=== PATIENT | female | born 1995 | race Caucasian/White ===

== ENCOUNTER 2020-03-01 18:45 | Emergency (ER) | payer MEDICAID ==
[~2020-03-01] VITALS: Ht 152.4 cm; Wt 67.3 kg
[2020-03-01] MEDS ORDERED: LITH300C3 PO (22:16)
[2020-03-01] MEDS ORDERED: CLON.5 PO (22:16)
[2020-03-01] MEDS ORDERED: DEPOP150I IM (22:16)
[2020-03-01] MEDS ORDERED: RISP1TAB27 PO ×2 (22:16)
[2020-03-01] MEDS ORDERED: CITA10TA99 PO (22:16)
[2020-03-01] MEDS ORDERED: LEVE500L PO (22:16)
[2020-03-01] MEDS ORDERED: DIPH50 PO (22:16)
[2020-03-01] MEDS ORDERED: LAMO100 PO ×2 (22:16)
[2020-03-01] MEDS ORDERED: MIRT-89 PO (22:16)
[2020-03-01] MEDS ORDERED: BENZ1TAB10 PO (22:16)
[2020-03-01] MEDS ORDERED: ASEN10TA8 SL (22:16)
[2020-03-01 23:19] LABS: BASOPHILS % (AUTO) 0.7 % (0.0-2.0); EOSINOPHILS % (AUTO) 2.9 % (1.0-6.0); HEMATOCRIT 32.7 % (36-46); HEMOGLOBIN 10.8 g/dL (12.0-16.0); MEAN CORPUSCULAR HEMOGLOBIN 29.4 pg (26.0-34.0); MEAN CORPUSCULAR VOLUME 89 fL (80-100); MONOCYTES # (AUTO) 0.7 K/uL (0.1-1.0); MONOCYTES % (AUTO) 7.9 % (2.0-9.0); NEUTROPHILS # (AUTO) 3.4 K/uL (1.8-7.7); NEUTROPHILS % (AUTO) 35.5 % (40.0-70.0); PLATELET COUNT (AUTO) 246 K/uL (150-450); RED BLOOD CELL COUNT(AUTO) 3.68 MIL/uL (4.00-5.20); RED CELL DISTRIBUTION WIDTH 12.4 % (11.5-14.5)
[2020-03-01 23:30] LABS: ANION GAP 7 mmol/L (8-16); CALCIUM, TOTAL 8.8 mg/dL (8.8-10.5); CARBON DIOXIDE 23 mmol/L (22-29); CHLORIDE 110 mmol/L (98-107); CREATININE 0.73 mg/dL (0.60-1.30); GLOMERULAR FILTR. RATE CALC > 60 mL/min (>60); GLUCOSE,RANDOM 103 mg/dL (70-110); POTASSIUM 4.1 mmol/L (3.5-5.1); SODIUM SERUM 140 mmol/L (136-145); UREA NITROGEN, BLOOD 16 mg/dL (7-18)
[2020-03-01 23:36] LABS: ALANINE AMINOTRANSFERASE 25 U/L (12-78); ALBUMIN 3.5 g/dL (3.4-5.0); ALKALINE PHOSPHATASE 85 U/L (46-116); ASPARTATE AMINOTRANSFERASE 15 U/L (15-37); TOTAL PROTEIN, SERUM 6.9 g/dL (6.4-8.2)
[2020-03-01 23:42] LABS: AMPHET/METH SCREEN,URINE NEGATIVE (NEGATIVE); BARBITURATE SCREEN, URINE NEGATIVE (NEGATIVE); BENZODIAZEPINES SCREEN,URINE NEGATIVE (NEGATIVE); CANNABINOID SCREEN,URINE NEGATIVE (NEGATIVE); COCAINE SCREEN,URINE NEGATIVE (NEGATIVE); METHADONE SCREEN, URINE NEGATIVE (NEGATIVE); OPIATE SCREEN,URINE NEGATIVE (NEGATIVE)
[2020-03-01 23:46] LABS: PHENCYCLIDINE SCREEN,URINE NEGATIVE (NEGATIVE)
[2020-03-02 00:11] LABS: BILIRUBIN,TOTAL 0.1 mg/dL (0.1-1.0)
[2020-03-02 07:26] VITALS: BP 99/58
== END 2020-03-02 07:51 | disposition home or self-care (01) ==
LOC: EMS 18:47
DX: R45.6 Violent behavior (principal); F32.9 Major depressive disorder, single episode, unspecified; J45.909 Unspecified asthma, uncomplicated; D64.9 Anemia, unspecified; Z88.8 Allergy status to other drugs, medicaments and biological substances; Z79.899 Other long term (current) drug therapy
CPT/HCPCS: 36415; 80053; 80307; 85025; 99285; G0480

== ENCOUNTER 2020-03-10 21:34 | Inpatient (IN) | payer MEDICAID ==
[~2020-03-10] VITALS: Ht 152.4 cm; Wt 69.9 kg
[~2020-03-10 21:34] MED LIST: ASEN10TA8 SL; BENZ1TAB10 PO; CITA10TA99 PO; CLON.5 PO; DEPOP150I IM; DIPH50 PO; LAMO100 PO; LEVE500L PO; LITH300C3 PO; MIRT-89 PO; RISP1TAB27 PO
[2020-03-10 23:00] LABS: BASOPHILS % (AUTO) 0.6 % (0.0-2.0); EOSINOPHILS % (AUTO) 2.5 % (1.0-6.0); HEMATOCRIT 36.2 % (36-46); HEMOGLOBIN 11.8 g/dL (12.0-16.0); LYMPHOCYTES # (AUTO) 4.6 K/uL (1.0-4.8); LYMPHOCYTES % (AUTO) 48.6 % (22.0-44.0); MEAN CORPUSCULAR HEMOGLOBIN 28.9 pg (26.0-34.0); MEAN CORPUSCULAR HGB CONC 32.8 G/dL (31.0-37.0); MEAN CORPUSCULAR VOLUME 88 fL (80-100); MONOCYTES # (AUTO) 0.8 K/uL (0.1-1.0); MONOCYTES % (AUTO) 8.9 % (2.0-9.0); NEUTROPHILS # (AUTO) 3.8 K/uL (1.8-7.7); NEUTROPHILS % (AUTO) 39.4 % (40.0-70.0); PLATELET COUNT (AUTO) 251 K/uL (150-450); RED CELL DISTRIBUTION WIDTH 12.9 % (11.5-14.5)
[2020-03-10 23:08] LABS: AMPHET/METH SCREEN,URINE NEGATIVE (NEGATIVE); BARBITURATE SCREEN, URINE NEGATIVE (NEGATIVE); BENZODIAZEPINES SCREEN,URINE NEGATIVE (NEGATIVE); CANNABINOID SCREEN,URINE NEGATIVE (NEGATIVE); COCAINE SCREEN,URINE NEGATIVE (NEGATIVE); METHADONE SCREEN, URINE NEGATIVE (NEGATIVE); OPIATE SCREEN,URINE NEGATIVE (NEGATIVE)
[2020-03-10 23:11] LABS: PHENCYCLIDINE SCREEN,URINE NEGATIVE (NEGATIVE)
[2020-03-10 23:30] LABS: ANION GAP 9 mmol/L (8-16); CARBON DIOXIDE 23 mmol/L (22-29); CHLORIDE 108 mmol/L (98-107); CREATININE 0.95 mg/dL (0.60-1.30); GLOMERULAR FILTR. RATE CALC > 60 mL/min (>60); GLUCOSE,RANDOM 90 mg/dL (70-110); SODIUM SERUM 140 mmol/L (136-145); UREA NITROGEN, BLOOD 12 mg/dL (7-18)
[2020-03-10 23:42] LABS: ALANINE AMINOTRANSFERASE 30 U/L (12-78); ALBUMIN 3.6 g/dL (3.4-5.0); ALKALINE PHOSPHATASE 93 U/L (46-116); ASPARTATE AMINOTRANSFERASE 23 U/L (15-37); BILIRUBIN,TOTAL 0.2 mg/dL (0.1-1.0); HCG,QUANTITATIVE < 1 mIU/mL (0-6); TOTAL PROTEIN, SERUM 7.4 g/dL (6.4-8.2)
[2020-03-10 23:55] LABS: LITHIUM 0.76 mmol/L (0.60-1.20)
[2020-03-11] MEDS ORDERED: LORazepam 2 MG TABLET PO PRN (01:45)
[2020-03-11] MEDS ORDERED: ZOLPIDEM TARTRATE 10 MG TABLET PO PRN (01:45)
[2020-03-11] MEDS ORDERED: QUEtiapine FUMARATE 100 MG TABLET PO PRN (01:45)
[2020-03-11 03:37] LABS: APPEARANCE,URINE CLEAR (CLEAR); BILIRUBIN,URINE NEGATIVE (NEGATIVE); GLUCOSE, URINE (UA) NEGATIVE (NEGATIVE); KETONES,URINE NEGATIVE (NEGATIVE); LEUKOCYTE ESTERASE ,URINE NEGATIVE (NEGATIVE); NITRATE,URINE NEGATIVE (NEGATIVE); OCCULT BLOOD,URINE NEGATIVE (NEGATIVE); PH,URINE 7.5 (5.0-8.0); PROTEIN,URINE NEGATIVE (NEGATIVE); UROBILINOGEN,URINE 0.2 mg/dL (<=1.0)
[2020-03-11 05:16] VITALS: BP 110/72
[2020-03-11 08:07] VITALS: BP 101/68
[2020-03-11] MEDS ORDERED: LevETIRAcetam 500 MG TABLET PO SCH (10:15)
[2020-03-11] MEDS ORDERED: ACETAMINOPHEN 325 MG TABLET PO PRN (11:00)
[2020-03-11] MEDS ORDERED: MAG HYDROX/AL HYDROX/SIMETH ES 30 ML SUSPENSION UDCUP PO PRN (11:00)
[2020-03-11] MEDS ORDERED: MAGNESIUM HYDROXIDE SUSPENSION 30 ML UDCUP PO PRN (11:00)
[2020-03-11] MEDS ORDERED: GuaiFENesin/D-METHORPHAN [SUGAR-FREE] 200-20MG/10 ML SYRUP UDCUP PO PRN (11:00)
[2020-03-11] MEDS ORDERED: LOPERAMIDE HCL 2 MG CAPSULE PO PRN (11:00)
[2020-03-11] MEDS ORDERED: PROMETHAZINE HCL 25 MG TABLET PO PRN (11:00)
[2020-03-11] MEDS ORDERED: TUBERCULIN, PURIFIED PROTEIN DERIVATIVE 5 TU/0.1 ML SYRINGE ID ONE (11:00)
[2020-03-11] MEDS ORDERED: ZIPRASIDONE MESYLATE 20 MG/VIAL IM ONE (15:15)
[2020-03-11] MEDS ORDERED: ZIPRASIDONE MESYLATE 20 MG/VIAL IM PRN (16:30)
[2020-03-11] MEDS ORDERED: GABAPENTIN 400 MG CAPSULE PO PRN (16:30)
[2020-03-11] MEDS ORDERED: OLANZapine 5 MG RAPDIS TABLET PO PRN (16:30)
[2020-03-11] MEDS: LevETIRAcetam 500 MG TABLET PO SCH (17:42)
[2020-03-11] MEDS: THIAMINE 100 MG TABLET PO SCH (17:42)
[2020-03-11 17:46] VITALS: BP 110/77
[2020-03-11] MEDS: DIVALPROEX SODIUM 500 MG ER TABLET PO SCH (20:26)
[2020-03-11] MEDS: PRAZOSIN HCL 1 MG CAPSULE PO SCH (20:26)
[2020-03-11] MEDS ORDERED: ASENAPINE 10 MG SUBLINGUAL TABLET SL SCH (21:00)
[2020-03-12 01:37] VITALS: BP 103/72
[2020-03-12 08:00] VITALS: BP 110/74
[2020-03-12 08:12] LABS: BASOPHILS % (AUTO) 0.6 % (0.0-2.0); EOSINOPHILS % (AUTO) 3.1 % (1.0-6.0); HEMATOCRIT 36.7 % (36-46); HEMOGLOBIN 12.1 g/dL (12.0-16.0); LYMPHOCYTES # (AUTO) 3.3 K/uL (1.0-4.8); LYMPHOCYTES % (AUTO) 46.8 % (22.0-44.0); MEAN CORPUSCULAR HGB CONC 32.9 G/dL (31.0-37.0); MEAN CORPUSCULAR VOLUME 88 fL (80-100); MONOCYTES # (AUTO) 0.5 K/uL (0.1-1.0); MONOCYTES % (AUTO) 6.7 % (2.0-9.0); NEUTROPHILS % (AUTO) 42.8 % (40.0-70.0); PLATELET COUNT (AUTO) 247 K/uL (150-450); RED BLOOD CELL COUNT(AUTO) 4.16 MIL/uL (4.00-5.20); RED CELL DISTRIBUTION WIDTH 12.7 % (11.5-14.5)
[2020-03-12 08:30] LABS: CHOL/HDL RATIO 3.9 (3.9-5.7); CHOLESTEROL 154 mg/dL (131-200); FREE T4 (FREE THYROXINE) 0.99 ng/dL (0.76-1.46); HCG,QUANTITATIVE < 1 mIU/mL (0-6); HDL CHOLESTEROL 40 mg/dL (40-60); LDL CHOL (CALC.) 93 mg/dL (0-130); THYROID STIMULATING HORMONE 3.07 uIU/mL (0.36-3.74); TRIGLYCERIDES 104 mg/dL (15-150); VALPROIC ACID 49 mcg/mL (50-100)
[2020-03-12 08:42] LABS: HEMOGLOBIN A1C 5.2 % (3.8-5.6)
[2020-03-12] MEDS: FOLIC ACID 1 MG TABLET PO SCH (08:52)
[2020-03-12] MEDS: LamoTRIgine 100 MG TABLET PO SCH (08:52)
[2020-03-12] MEDS: NALTREXONE HCL 50 MG TABLET PO SCH (08:52)
[2020-03-12] MEDS: LevETIRAcetam 500 MG TABLET PO SCH ×3 (08:53→19:15)
[2020-03-12] MEDS: FLUoxetine HCL 20 MG CAPSULE PO SCH (08:53)
[2020-03-12] MEDS: MULTIVITAMINS WITH MINERALS, THERAPEUTIC TABLET PO SCH (08:53)
[2020-03-12] MEDS ORDERED: CloZAPine 25 MG TABLET PO SCH (09:00)
[2020-03-12] MEDS: THIAMINE 100 MG TABLET PO SCH ×2 (09:15→16:43)
[2020-03-12] MEDS: HydrOXYzine PAMOATE 50 MG CAPSULE PO PRN ×2 (09:22→15:03)
[2020-03-12 16:25] VITALS: BP 100/68
[2020-03-12] MEDS ORDERED: PENICILLIN G BENZATHINE LA 2,400,000 UNITS/4 ML SYRINGE IM ONE (17:30)
[2020-03-12] MEDS: DIVALPROEX SODIUM 500 MG ER TABLET PO SCH (20:54)
[2020-03-12] MEDS: PRAZOSIN HCL 1 MG CAPSULE PO SCH (20:54)
[2020-03-12] MEDS ORDERED: ONDANSETRON HCL 4 MG/2 ML VIAL IM PRN (23:00)
[2020-03-13 05:41] VITALS: BP 103/60
[2020-03-13] MEDS: FLUoxetine HCL 20 MG CAPSULE PO SCH (08:36)
[2020-03-13] MEDS: LevETIRAcetam 500 MG TABLET PO SCH (08:36)
[2020-03-13] MEDS: THIAMINE 100 MG TABLET PO SCH (08:36)
[2020-03-13] MEDS: FOLIC ACID 1 MG TABLET PO SCH (08:36)
[2020-03-13] MEDS: LamoTRIgine 100 MG TABLET PO SCH (08:36)
[2020-03-13] MEDS: NALTREXONE HCL 50 MG TABLET PO SCH (08:36)
[2020-03-13] MEDS: MULTIVITAMINS WITH MINERALS, THERAPEUTIC TABLET PO SCH (08:36)
[2020-03-13 08:46] VITALS: BP 114/62
[2020-03-13] MEDS ORDERED: LITHIUM CARBONATE 300 MG CAPSULE PO SCH (09:00)
[2020-03-13] MEDS ORDERED: CloZAPine 25 MG TABLET PO SCH ×2 (09:00→21:00)
[2020-03-13] MEDS ORDERED: ZIPRASIDONE MESYLATE 20 MG/VIAL IM PRN (10:15)
[2020-03-14] MEDS ORDERED: CloZAPine 25 MG TABLET PO SCH ×2 (09:00→21:00)
[2020-03-14] MEDS ORDERED: LOPERAMIDE HCL 2 MG CAPSULE PO PRN (11:00)
[2020-03-15] MEDS ORDERED: CloZAPine 25 MG TABLET PO SCH (09:00)
[2020-03-17] MEDS ORDERED: CloZAPine 25 MG TABLET PO SCH (09:00)
[2020-03-17] MEDS ORDERED: CloZAPine 100 MG TABLET PO SCH (21:00)
[2020-03-18] MEDS ORDERED: CloZAPine 25 MG TABLET PO SCH (09:00)
[2020-03-18] MEDS ORDERED: CloZAPine 100 MG TABLET PO SCH (21:00)
[2020-03-19] MEDS ORDERED: CloZAPine 25 MG TABLET PO SCH (09:00)
[2020-03-19] MEDS ORDERED: CloZAPine 100 MG TABLET PO SCH (21:00)
[2020-03-20] MEDS ORDERED: CloZAPine 100 MG TABLET PO SCH (09:00)
[2020-03-22] MEDS ORDERED: CloZAPine 25 MG TABLET PO SCH (09:00)
[2020-03-22] MEDS ORDERED: CloZAPine 100 MG TABLET PO SCH (21:00)
[2020-03-23] MEDS ORDERED: CloZAPine 25 MG TABLET PO SCH (09:00)
[2020-03-23] MEDS ORDERED: CloZAPine 100 MG TABLET PO SCH (21:00)
[2020-03-24] MEDS ORDERED: CloZAPine 100 MG TABLET PO SCH ×2 (09:00→21:00)
== END 2020-03-13 16:00 | disposition other institution (70) | DRG 885 ==
LOC: EMS 21:37 → B3A 03-11 01:36
PROVIDERS: ADMIT Psychiatry & Neurology Psychiatry; ATTEND Psychiatry & Neurology Psychiatry
DX: F25.0 Schizoaffective disorder, bipolar type (principal); R45.851 Suicidal ideations; F17.210 Nicotine dependence, cigarettes, uncomplicated; G40.409 Other generalized epilepsy and epileptic syndromes, not intractable, without status epilepticus; J45.909 Unspecified asthma, uncomplicated; R45.850 Homicidal ideations; Z91.19 Patient's noncompliance with other medical treatment and regimen; R10.9 Unspecified abdominal pain
CPT/HCPCS: 83036; 84439; 84443; 86592; 86593; 86780; G0480; G0482; J0561; J3486

== ENCOUNTER 2020-07-24 21:48 | Inpatient (IN) | payer MEDICAID ==
[~2020-07-24] VITALS: Ht 152.4 cm; Wt 67.0 kg
[~2020-07-24 21:48] MED LIST changes: -ASEN10TA8 SL; -CITA10TA99 PO; -CLON.5 PO; +CLOZ25TA5 PO; -DEPOP150I IM; -DIPH50 PO; +DIVA-80 PO; +FLUO-191 PO; -LAMO100 PO; -LITH300C3 PO; -MIRT-89 PO; -RISP1TAB27 PO
[2020-07-24 23:32] LABS: BASOPHILS % (AUTO) 0.6 % (0.0-2.0); EOSINOPHILS % (AUTO) 0.8 % (1.0-6.0); HEMATOCRIT 40.8 % (36-46); HEMOGLOBIN 14.1 g/dL (12.0-16.0); LYMPHOCYTES # (AUTO) 5.2 K/uL (1.0-4.8); LYMPHOCYTES % (AUTO) 51.4 % (22.0-44.0); MEAN CORPUSCULAR HEMOGLOBIN 32.4 pg (26.0-34.0); MEAN CORPUSCULAR HGB CONC 34.5 G/dL (31.0-37.0); MEAN CORPUSCULAR VOLUME 94 fL (80-100); MONOCYTES # (AUTO) 0.8 K/uL (0.1-1.0); MONOCYTES % (AUTO) 7.9 % (2.0-9.0); NEUTROPHILS % (AUTO) 39.3 % (40.0-70.0); PLATELET COUNT (AUTO) 252 K/uL (150-450); RED BLOOD CELL COUNT(AUTO) 4.34 MIL/uL (4.00-5.20); RED CELL DISTRIBUTION WIDTH 12.2 % (11.5-14.5)
[2020-07-24 23:45] LABS: COVID AG,FIA SOURCE NASOPHARYNGEAL
[2020-07-24 23:59] LABS: ANION GAP 9 mmol/L (8-16); CALCIUM, TOTAL 9.3 mg/dL (8.8-10.5); CARBON DIOXIDE 26 mmol/L (22-29); CHLORIDE 106 mmol/L (98-107); CREATININE 0.59 mg/dL (0.60-1.30); GLOMERULAR FILTR. RATE CALC > 60 mL/min (>60); GLUCOSE,RANDOM 99 mg/dL (70-110); POTASSIUM 3.9 mmol/L (3.5-5.1); SODIUM SERUM 141 mmol/L (136-145); UREA NITROGEN, BLOOD 7 mg/dL (7-18)
[2020-07-25 00:06] LABS: ALANINE AMINOTRANSFERASE 34 U/L (12-78); ALBUMIN 3.6 g/dL (3.4-5.0); ALKALINE PHOSPHATASE 85 U/L (46-116); ASPARTATE AMINOTRANSFERASE 13 U/L (15-37); BILIRUBIN,TOTAL 0.2 mg/dL (0.1-1.0); TOTAL PROTEIN, SERUM 7.6 g/dL (6.4-8.2); VALPROIC ACID 66 mcg/mL (50-100)
[2020-07-25 06:38] VITALS: BP 101/61
[2020-07-25] MEDS ORDERED: INFLUENZA VIRUS VACCINE QVS 2020-21 (6MO+)/PF 60 MCG/0.5 ML SYRINGE IM ONE (06:45)
[2020-07-25] MEDS ORDERED: MAG HYDROX/AL HYDROX/SIMETH ES 30 ML SUSPENSION UDCUP PO PRN (12:15)
[2020-07-25] MEDS ORDERED: HydrOXYzine PAMOATE 50 MG CAPSULE PO PRN (12:15)
[2020-07-25] MEDS ORDERED: LOPERAMIDE HCL 2 MG CAPSULE PO PRN (12:15)
[2020-07-25] MEDS ORDERED: MAGNESIUM HYDROXIDE SUSPENSION 30 ML UDCUP PO PRN (12:15)
[2020-07-25] MEDS ORDERED: ACETAMINOPHEN 325 MG TABLET PO PRN (12:15)
[2020-07-25] MEDS ORDERED: PROMETHAZINE HCL 25 MG TABLET PO PRN (12:15)
[2020-07-25] MEDS ORDERED: GuaiFENesin/D-METHORPHAN [SUGAR-FREE] 200-20MG/10 ML SYRUP UDCUP PO PRN (12:15)
[2020-07-25 13:03] VITALS: BP 111/58
[2020-07-25] MEDS: LORazepam 2 MG TABLET PO PRN (13:39)
[2020-07-25 16:12] VITALS: BP 109/71
[2020-07-25] MEDS: THIAMINE 100 MG TABLET PO SCH (16:26)
[2020-07-25] MEDS: LevETIRAcetam 500 MG TABLET PO SCH (20:36)
[2020-07-25] MEDS: DIVALPROEX SODIUM 500 MG ER TABLET PO SCH (20:36)
[2020-07-25] MEDS: ZOLPIDEM TARTRATE 10 MG TABLET PO PRN (20:53)
[2020-07-25] MEDS ORDERED: LevETIRAcetam 500 MG TABLET PO SCH (21:00)
[2020-07-26 00:11] VITALS: BP 101/73
[2020-07-26 07:45] LABS: BASOPHILS % (AUTO) 0.6 % (0.0-2.0); EOSINOPHILS % (AUTO) 1.6 % (1.0-6.0); HEMATOCRIT 36.2 % (36-46); HEMOGLOBIN 12.5 g/dL (12.0-16.0); LYMPHOCYTES # (AUTO) 4.4 K/uL (1.0-4.8); LYMPHOCYTES % (AUTO) 57.2 % (22.0-44.0); MEAN CORPUSCULAR HEMOGLOBIN 32.4 pg (26.0-34.0); MEAN CORPUSCULAR HGB CONC 34.6 G/dL (31.0-37.0); MEAN CORPUSCULAR VOLUME 94 fL (80-100); MONOCYTES # (AUTO) 0.7 K/uL (0.1-1.0); MONOCYTES % (AUTO) 8.9 % (2.0-9.0); NEUTROPHILS # (AUTO) 2.5 K/uL (1.8-7.7); NEUTROPHILS % (AUTO) 31.7 % (40.0-70.0); PLATELET COUNT (AUTO) 216 K/uL (150-450); RED BLOOD CELL COUNT(AUTO) 3.86 MIL/uL (4.00-5.20); RED CELL DISTRIBUTION WIDTH 12.1 % (11.5-14.5)
[2020-07-26 08:01] LABS: HEMOGLOBIN A1C 5.1 % (3.8-5.6)
[2020-07-26 08:07] VITALS: BP 122/70
[2020-07-26 08:08] LABS: CHOL/HDL RATIO 4.2 (3.9-5.7)
[2020-07-26] MEDS: MULTIVITAMINS WITH MINERALS, THERAPEUTIC TABLET PO SCH (08:32)
[2020-07-26] MEDS: FOLIC ACID 1 MG TABLET PO SCH (08:32)
[2020-07-26] MEDS: FLUoxetine HCL 20 MG CAPSULE PO SCH (08:32)
[2020-07-26] MEDS: OMEGA-3/DHA/EPA/FISH OIL 1,000 MG CAPSULE PO SCH (08:33)
[2020-07-26] MEDS: LORazepam 2 MG TABLET PO PRN ×2 (08:33→22:25)
[2020-07-26] MEDS: THIAMINE 100 MG TABLET PO SCH ×2 (08:33→16:00)
[2020-07-26] MEDS: LevETIRAcetam 500 MG TABLET PO SCH ×2 (08:49→16:00)
[2020-07-26 16:04] VITALS: BP 114/71
[2020-07-26] MEDS: NICOTINE 21 MG/24 HOUR PATCH TD SCH (17:59)
[2020-07-26] MEDS: DIVALPROEX SODIUM 500 MG ER TABLET PO SCH (21:09)
[2020-07-26] MEDS: ZOLPIDEM TARTRATE 10 MG TABLET PO PRN (21:24)
[2020-07-26] MEDS: OLANZapine 5 MG RAPDIS TABLET PO PRN (22:25)
[2020-07-27 01:09] VITALS: BP 108/68
[2020-07-27] MEDS: LORazepam 2 MG TABLET PO PRN ×3 (08:07→22:29)
[2020-07-27] MEDS: FOLIC ACID 1 MG TABLET PO SCH (08:07)
[2020-07-27] MEDS: LevETIRAcetam 500 MG TABLET PO SCH ×2 (08:07→16:09)
[2020-07-27] MEDS: NICOTINE 21 MG/24 HOUR PATCH TD SCH (08:07)
[2020-07-27] MEDS: MULTIVITAMINS WITH MINERALS, THERAPEUTIC TABLET PO SCH (08:07)
[2020-07-27] MEDS: FLUoxetine HCL 20 MG CAPSULE PO SCH (08:07)
[2020-07-27] MEDS: THIAMINE 100 MG TABLET PO SCH ×2 (08:07→16:09)
[2020-07-27] MEDS: OMEGA-3/DHA/EPA/FISH OIL 1,000 MG CAPSULE PO SCH (08:07)
[2020-07-27 08:58] VITALS: BP 125/66
[2020-07-27 16:06] VITALS: BP 129/61
[2020-07-27] MEDS: ZOLPIDEM TARTRATE 10 MG TABLET PO PRN (20:45)
[2020-07-27] MEDS: DIVALPROEX SODIUM 500 MG ER TABLET PO SCH (20:45)
[2020-07-28 06:28] VITALS: BP 128/60
[2020-07-28 08:15] VITALS: BP 111/66
[2020-07-28] MEDS: NICOTINE 21 MG/24 HOUR PATCH TD SCH (08:18)
[2020-07-28] MEDS: FOLIC ACID 1 MG TABLET PO SCH (08:19)
[2020-07-28] MEDS: FLUoxetine HCL 20 MG CAPSULE PO SCH (08:19)
[2020-07-28] MEDS: THIAMINE 100 MG TABLET PO SCH ×2 (08:19→16:51)
[2020-07-28] MEDS: MULTIVITAMINS WITH MINERALS, THERAPEUTIC TABLET PO SCH (08:19)
[2020-07-28] MEDS: OMEGA-3/DHA/EPA/FISH OIL 1,000 MG CAPSULE PO SCH (08:19)
[2020-07-28] MEDS: LevETIRAcetam 500 MG TABLET PO SCH ×2 (08:19→16:51)
[2020-07-28] MEDS: LORazepam 2 MG TABLET PO PRN (08:20)
[2020-07-28] MEDS: OLANZapine 5 MG RAPDIS TABLET PO PRN (08:38)
[2020-07-28 16:31] VITALS: BP 120/68
[2020-07-28] MEDS ORDERED: LOPERAMIDE HCL 2 MG CAPSULE PO PRN (19:15)
[2020-07-28] MEDS ORDERED: ONDANSETRON HCL 4 MG TABLET PO PRN (19:15)
[2020-07-28] MEDS ORDERED: MAG HYDROX/AL HYDROX/SIMETH ES 30 ML SUSPENSION UDCUP PO PRN (19:15)
[2020-07-28] MEDS ORDERED: BACITRACIN 28 GM OINTMENT TP PRN (19:15)
[2020-07-28] MEDS ORDERED: IBUPROFEN 600 MG TABLET PO PRN (19:15)
[2020-07-28] MEDS ORDERED: PETROLATUM,WHITE 28 GM JELLY TP PRN (19:15)
[2020-07-28] MEDS ORDERED: DOCUSATE SODIUM 100 MG CAPSULE PO PRN (19:15)
[2020-07-28] MEDS ORDERED: MAGNESIUM HYDROXIDE SUSPENSION 30 ML UDCUP PO PRN (19:15)
[2020-07-28] MEDS ORDERED: CloNIDine HCL 0.1 MG TABLET PO PRN (19:15)
[2020-07-28] MEDS ORDERED: OMEPRAZOLE 20 MG CAPSULE PO PRN (19:15)
[2020-07-28] MEDS ORDERED: BENZOCAINE/MENTHOL LOZENGE PO PRN (19:15)
[2020-07-28] MEDS ORDERED: ALBUTEROL SULFATE HFA 90 MCG/PUFF 8 GM INHALER IH PRN (19:15)
[2020-07-28] MEDS ORDERED: ACETAMINOPHEN 325 MG TABLET PO PRN (19:15)
[2020-07-28] MEDS: DIVALPROEX SODIUM 500 MG ER TABLET PO SCH (20:03)
[2020-07-28 20:45] VITALS: BP 104/70
[2020-07-29 05:14] VITALS: BP 105/62
[2020-07-29] MEDS: LORazepam 2 MG TABLET PO PRN (08:05)
[2020-07-29] MEDS: LevETIRAcetam 500 MG TABLET PO SCH ×2 (08:07→16:06)
[2020-07-29] MEDS: MULTIVITAMINS WITH MINERALS, THERAPEUTIC TABLET PO SCH (08:07)
[2020-07-29] MEDS: OMEGA-3/DHA/EPA/FISH OIL 1,000 MG CAPSULE PO SCH (08:07)
[2020-07-29] MEDS: FLUoxetine HCL 20 MG CAPSULE PO SCH (08:07)
[2020-07-29] MEDS: OLANZapine 5 MG RAPDIS TABLET PO PRN (08:07)
[2020-07-29] MEDS: THIAMINE 100 MG TABLET PO SCH ×2 (08:07→16:06)
[2020-07-29] MEDS: FOLIC ACID 1 MG TABLET PO SCH (08:07)
[2020-07-29] MEDS: CloZAPine 25 MG TABLET PO SCH ×2 (08:28→20:05)
[2020-07-29] MEDS: NICOTINE 21 MG/24 HOUR PATCH TD SCH (08:30)
[2020-07-29 16:56] VITALS: BP 102/64
[2020-07-29] MEDS ORDERED: LEVE500T53 PO (19:58)
[2020-07-29] MEDS ORDERED: DIVA-80 PO (19:58)
[2020-07-29] MEDS ORDERED: CLOZ100T31 PO (19:58)
[2020-07-29] MEDS ORDERED: OMEG-135 PO (19:58)
[2020-07-29] MEDS: DIVALPROEX SODIUM 500 MG ER TABLET PO SCH (20:05)
[2020-07-30 08:00] VITALS: BP 127/59
[2020-07-30] MEDS: LevETIRAcetam 500 MG TABLET PO SCH (08:50)
[2020-07-30] MEDS: FLUoxetine HCL 20 MG CAPSULE PO SCH (08:51)
[2020-07-30] MEDS: OMEGA-3/DHA/EPA/FISH OIL 1,000 MG CAPSULE PO SCH (08:51)
[2020-07-30] MEDS: CloZAPine 25 MG TABLET PO SCH (08:51)
[2020-07-30] MEDS: MULTIVITAMINS WITH MINERALS, THERAPEUTIC TABLET PO SCH (08:51)
[2020-07-30] MEDS: NICOTINE 21 MG/24 HOUR PATCH TD SCH (08:51)
[2020-07-30] MEDS: FOLIC ACID 1 MG TABLET PO SCH (08:51)
[2020-07-30] MEDS: THIAMINE 100 MG TABLET PO SCH (09:00)
[2020-07-31] MEDS ORDERED: CloZAPine 25 MG TABLET PO SCH (09:00)
[2020-07-31] MEDS ORDERED: CloZAPine 100 MG TABLET PO SCH (21:00)
[2020-08-01] MEDS ORDERED: CloZAPine 25 MG TABLET PO SCH (09:00)
[2020-08-01] MEDS ORDERED: CloZAPine 100 MG TABLET PO SCH (21:00)
[2020-08-02] MEDS ORDERED: CloZAPine 25 MG TABLET PO SCH (09:00)
[2020-08-02] MEDS ORDERED: CloZAPine 100 MG TABLET PO SCH (21:00)
[2020-08-03] MEDS ORDERED: CloZAPine 100 MG TABLET PO SCH (09:00)
[2020-08-05] MEDS ORDERED: CloZAPine 25 MG TABLET PO SCH (09:00)
[2020-08-05] MEDS ORDERED: CloZAPine 100 MG TABLET PO SCH (21:00)
[2020-08-06] MEDS ORDERED: CloZAPine 25 MG TABLET PO SCH (09:00)
[2020-08-06] MEDS ORDERED: CloZAPine 100 MG TABLET PO SCH (21:00)
[2020-08-07] MEDS ORDERED: CloZAPine 100 MG TABLET PO SCH ×2 (09:00→21:00)
== END 2020-07-30 14:45 | DRG 750 ==
LOC: EMS 21:48 → B3A 07-25 00:19 → 3EC 07-28 20:05
PROVIDERS: ADMIT Psychiatry & Neurology Psychiatry; ATTEND Psychiatry & Neurology Psychiatry
DX: F20.9 Schizophrenia, unspecified (principal); F43.10 Post-traumatic stress disorder, unspecified; G40.409 Other generalized epilepsy and epileptic syndromes, not intractable, without status epilepticus; J45.909 Unspecified asthma, uncomplicated; Z20.828 Contact with and (suspected) exposure to other viral communicable diseases; F17.210 Nicotine dependence, cigarettes, uncomplicated; Z55.9 Problems related to education and literacy, unspecified
CPT/HCPCS: 80159; 83036; 86592; 87426; 90686; G0480; G0482